=== PATIENT | female | born 1940 | race Caucasian/White ===

== ENCOUNTER 2020-11-17 17:51 | Emergency (ER) | payer MEDICARE ==
[~2020-11-17] VITALS: Ht 157.5 cm; Wt 52.2 kg
== END 2020-11-17 20:30 | disposition home or self-care (01) ==
LOC: ER 17:55
DX: K59.00 Constipation, unspecified (principal); Z11.52 Encounter for screening for COVID-19
CPT/HCPCS: 74176; 99283; U0002